=== PATIENT | female | born 1965 | race Caucasian/White ===

== ENCOUNTER 2023-06-23 06:22 | Day surgery (SDC) | payer OTHER ==
[~2023-06-23] VITALS: Ht 172.7 cm; Wt 66.7 kg
[2023-06-23] MEDS: MIDAZOLAM HCL 5 MG/5 ML VIAL ONE (08:37)
[2023-06-23] MEDS: MEPERIDINE 100 MG INJ. 100 MG/ML VIAL ONE (08:50)
[2023-06-23 10:00] VITALS: BP_SYST 113; PULSE 83; RESP 18; TEMP 97.9; O2SAT 99
== END 2023-06-23 09:45 | disposition home or self-care (01) ==
LOC: SDS 06:22 → SMU 06:24 → SDS 09:45
PROVIDERS: ATTEND Internal Medicine Gastroenterology
DX: K59.09 Other constipation (principal); K64.8 Other hemorrhoids; E11.9 Type 2 diabetes mellitus without complications; E03.9 Hypothyroidism, unspecified; Z90.49 Acquired absence of other specified parts of digestive tract; Z98.891 History of uterine scar from previous surgery; Z79.82 Long term (current) use of aspirin; Z79.84 Long term (current) use of oral hypoglycemic drugs; Z79.899 Other long term (current) drug therapy; Z88.6 Allergy status to analgesic agent; Z91.040 Latex allergy status; Z86.010 Personal history of colon polyps; Z85.038 Personal history of other malignant neoplasm of large intestine
CPT/HCPCS: 99152; 45378; 82948; G0378; J2250; J2175